=== PATIENT | male | born 1985 | race Caucasian/White ===

== ENCOUNTER 2016-09-18 12:12 | Emergency (ER) | payer MEDICAID ==
--- NOTE | 2016-09-18 12:35 | Emergency Department Record ---
History of Present Illness - General Chief Complaint: Cough Stated Complaint: COUGH AND RT RIB PAIN Time Seen by Provider: 09/18/16 12:34 Source: Patient, Family Mode of Arrival: Ambulatory Limitations: No limitations - History of Present Illness Initial Comments: 31 yo male presents with cough for 2 weeks. He has had congestion, sore throat , and cough with yellow sputum. The last 4 days he has had right rib pain with coughing. He felt a pop like feeling with a hard cough. He has been seen at the [facility]. He was diagnosed with bronchitis, uri, strep, and pneumonia. He is not a smoker. No history of asthma. No history of CAD. No history of DVT or PE MD Complaint: Cough, Sore throat Onset/Timin -: Week(s) Severity: Moderate Severity scale (1-10): 7 Consistency: Constant - Related Data Home Medications Medication Instructions Recorded Confirmed Last Taken Atorvastatin Calcium [Lipitor] 20 mg PO DAILY 09/18/16 09/18/16 Unknown Hydrochlorothiazide 12.5 mg PO DAILY 09/18/16 09/18/16 Unknown Previous Rx's Medication Instructions Recorded Benzonatate [Tessalon] 2 cap PO Q8H PRN #30 cap 09/18/16 Hydrocodone/Acetaminophen [[place] 1 tab PO Q8H PRN #20 tab 09/18/16 7.5mg/325mg] Naproxen [Naprosyn] 500 mg PO Q12H #30 tab. 09/18/16 Allergies Allergy/AdvReac Type Severity Reaction Status Date / Time Penicillins Allergy VOMITING Verified 09/18/16 12:29 Travel Screening - Travel/Exposure Within Last 30 Days Have you traveled within the last 30 days?: No Review of Systems Constitutional: Denies: Chills, Fever, Malaise, Night sweats, Weakness Eyes: Denies: Eye discharge ENT: Reports: Congestion, Throat pain Respiratory: Reports: Cough, Dyspnea Cardiovascular: Reports: Chest pain. Denies: Palpitations, Syncope Endocrine: Denies: Fatigue Gastrointestinal: Denies: Abdominal pain, Diarrhea, Nausea, Vomiting Genitourinary: Denies: Dysuria, Frequency, Hematuria Musculoskeletal: Denies: Arthralgia, Back pain, Joint swelling, Myalgia, Neck pain Skin: Denies: Bruising, Change in color, Rash Neurological: Denies: Confusion, Headache, Numbness, Vertigo, Weakness Psychiatric: Denies: Anxiety Hematological/Lymphatic: Denies: Blood Clots, Easy bleeding, Easy bruising, Swollen glands Past Medical History - SOCIAL HISTORY Smoking Status: Never smoker Alcohol Use: None Drug Use: None - RESPIRATORY Hx Respiratory Disorders: No - CARDIOVASCULAR Hx Cardio Disorders: Yes Hx Hypertension: Yes Comment:: high cholesterol - NEURO Hx Neuro Disorders: No - GI Hx GI Disorders: No - Hx Genitourinary Disorders: No - ENDOCRINE Hx Endocrine Disorders: No - MUSCULOSKELETAL Hx Musculoskeletal Disorders: No - PSYCH Hx Psych Problems: No - HEMATOLOGY/ONCOLOGY Hx Hematology/Oncology Disorders: No Family Medical History Any Significant Family History?: Yes Hx Diabetes: Grandparents Physical Exam - General General Appearance: Alert, Oriented x3, Cooperative, No acute distress Limitations: No limitations - Head Head exam: Normal inspection - Eye Eye exam: Normal appearance, PERRL. negative: Conjunctival injection - ENT ENT exam: Normal exam, Mucous membranes moist, Normal orophraynx Ear exam: Normal external inspection. negative: External canal tenderness Nasal Exam: Normal inspection. negative: Discharge, Sinus tenderness Mouth exam: Normal external inspection, Tongue normal Teeth exam: Normal inspection. negative: Dental caries Throat exam: Normal inspection. negative: Tonsillar erythema, Tonsillar exudate - Neck Neck exam: Normal inspection, Full ROM. negative: Lymphadenopathy, Tenderness - Respiratory Respiratory exam: Chest wall tenderness (right ribs tender to palpation lateral and posterior), Decreased breath sounds (due to splinting from rigth rib pain) - Cardiovascular Cardiovascular Exam: Regular rate, Normal rhythm, Normal heart sounds - GI/Abdominal GI/Abdominal exam: Soft. negative: Tenderness - Rectal Rectal exam: Deferred - exam: Deferred - Extremities Extremities exam: Normal inspection, Full ROM, Normal capillary refill. negative: Tenderness - Back Back exam: Reports: Normal inspection, Full ROM. Denies: Muscle spasm, Rash noted, Tenderness - Neurological Neurological exam: Alert, Normal gait, Oriented X3 - Psychiatric Psychiatric exam: Normal affect, Normal mood - Skin Skin exam: Dry, Intact, Normal color, Warm Course Vital Signs 09/18/16 12:23 Temperature 97.8 F Pulse Rate 109 H Respiratory 18 Rate Blood Pressure 137/91 Pulse Ox 97 - Reevaluation(s) Reevaluation #1: The labs were reviewed WBC 16 No acute changes on the BMP CTA ordered 09/18/16 13:29 Reevaluation #2: The CTA of the chest is negative for acute infection, acute changes, PE or any other acute process The patient has very reproducible pain on exam. Given he heard a pop with a hard cough it may represent a musculo-skeletal injury with all of his frequent hard coughing. His WBC count is 16 which could be infection as well as he has been on steroids. I will have him continue his antibiotics that were started and provide and analgesic plan and antitussive as well. 09/18/16 14:15 Reevaluation #3: RT asked to teach and dispense IS given clinically similar presentation to rib fracture. 09/18/16 14:47 Reevaluation #4: RT completed instructions DC home with instructions for a recheck in the ED 09/18/16 15:09 Medical Decision Making - Lab Data Result diagrams: 09/18/16 12:50 09/18/16 12:50 Disposition Disposition: Discharge Clinical Impression: Bronchitis, Rib pain on right side Disposition: Home, Self-Care Condition: (1) Good Instructions: Rib Fracture (ED), Acute Bronchitis (ED) Additional Instructions: Recheck in the ER in the next 24 hours if not improving and sooner if worse or you don't have good pain control Call your doctor for a recheck this week No lifting for the next 3 days. Prescriptions: Naproxen [Naprosyn] 500 mg PO Q12H #30 tab. Hydrocodone/Acetaminophen [[place] 7.5mg/325mg] 1 tab PO Q8H PRN #20 tab PRN Reason: Pain - General Benzonatate [Tessalon] 2 cap PO Q8H PRN #30 cap PRN Reason: Cough Forms: Patient Portal Access Time of Disposition: 15:14
[2016-09-18] MEDS ORDERED: MORPHINE SULFATE 5 MG/ML PFS IVP ONE ×2 (12:44→14:47)
[2016-09-18] MEDS ORDERED: KETOROLAC 30 MG/ML VIAL IVP ONE (12:44)
[2016-09-18] MEDS ORDERED: BENZONATATE 100 MG CAPSULE PO ONE (12:46)
[2016-09-18 13:04] LABS: HEMATOCRIT 50.5 % (42.0-52.0); HEMOGLOBIN 16.4 gm/dl (14.0-18.0); MEAN CORPUSCULAR HEMOGLOBIN 29.5 pg (27-33); MEAN CORPUSCULAR HGB CONC 32.5 g/dl (32-36); MEAN PLATELET VOLUME 10.5 fl (7.4-10.4); PLATELET COUNT 311 K/uL (130-400); RED BLOOD COUNT 5.55 M/uL (4.40-5.70); WHITE BLOOD COUNT W/O DIFF 16.5 K/uL (4.2-12.2)
[2016-09-18 13:15] LABS: ANION GAP 13.4 (7-16); BLOOD UREA NITROGEN 14 mg/dL (9-20); CARBON DIOXIDE 28.6 mmol/L (22-30); CREATININE 1.1 mg/dL (0.66-1.25); EST GLOMERULAR FILTRATION RATE > 60 ml/min; GLUCOSE,RANDOM 163 mg/dL (70-110); PLATELET ESTIMATE NORMAL (NORMAL)
--- NOTE | 2016-09-21 11:03 | CT ANGIOGRAM REPORT ---
EXAM: CTA OF THE CHEST HISTORY: RIGHT PLEURITIC CHEST PAIN, DIFFICULTY BREATHING, ACUTE COUGH NONPRODUCTIVE. TECHNIQUE: Contiguous axial images from the thoracic inlet to the upper abdomen were obtained. Sagittal and coronal two dimensional reformatted images as well as 3D/MIP reformatted images were obtained for better anatomic delineation. Comparison: CT of the chest 05/02/15. FINDINGS: The lungs are clear. The heart is not enlarged and there is no pericardial effusion. No coronary artery calcification. No enlarged lymph nodes in the thorax. No filling defect to suggest pulmonary embolism. no thoracic aortic dissection. The upper abdomen is unremarkable. No lytic or blastic osseous lesion. IMPRESSION: NO ACUTE INTRATHORACIC PROCESS WITH NO PE OR THORACIC AORTIC DISSECTION. JOB NUMBER: [id number] [facility]
== END 2016-09-18 15:30 | disposition home or self-care (01) ==
LOC: ER 12:12
DX: J20.9 Acute bronchitis, unspecified (principal); R07.81 Pleurodynia; I10 Essential (primary) hypertension
CPT/HCPCS: 99284 ×2; 96376; 96374; 96375; 80048; 85027; 71275; 94010; Q9967; J1885; J2270